=== PATIENT | male | born 2000 | race Caucasian/White ===

== ENCOUNTER 2025-04-25 07:59 | Outpatient (CLI) | payer BC ==
[2025-04-25] MEDS ORDERED: Sincalide 5 MCG VIAL ONE (08:54)
[2025-04-25] MEDS ORDERED: Bacteriostatic Normal Saline 30 ML VIAL ONE (08:55)
== END 2025-04-25 08:00 | disposition home or self-care (01) ==
LOC: NM 07:59
PROVIDERS: ATTEND Internal Medicine
DX: R10.13 Epigastric pain (principal); R11.2 Nausea with vomiting, unspecified; K82.8 Other specified diseases of gallbladder
CPT/HCPCS: 78227; A9537; J2805